=== PATIENT | male | born 1995 | race Caucasian/White ===

== ENCOUNTER 2024-02-24 10:09 | Emergency (ER) | payer OTHER ==
[~2024-02-24] VITALS: Ht 177.8 cm; Wt 98.0 kg
[2024-02-24] MEDS ORDERED: KETOROLAC TROMETHAMINE 30 MG/ML VIAL IV ONE (11:00)
[2024-02-24 11:16] LABS: BASOPHILS 0.5 % (0-2); EOSINOPHILS 2.4 % (0-6); HEMATOCRIT 41.8 % (35.0-50.0); HEMOGLOBIN 14.2 g/dL (12.0-18.0); LYMPHOCYTES 27.3 % (24-44); MCH 29.4 (27-36); MCV 86.3 fl (81-99); MONOCYTES 8.6 % (0-12); NEUTROPHILS 61.2 % (39-80); PLATELET COUNT 306 K/uL (140-440); RBC 4.85 M/ul (4.3-5.7); RDW 13.8 (10.5-15.0)
[2024-02-24 11:31] LABS: ALBUMIN/GLOBULIN RATIO 1.25 (1.1-2.4); ANION GAP 12.3 (7-21); BILIRUBIN, TOTAL 0.5 ng/dL (0.2-1.0); BUN/CREATININE RATIO 12.24 (6.0-28.6); CALCIUM 8.8 mg/dL (8.5-10.1); CREATININE, SERUM 0.98 mg/dL (0.70-1.30); POTASSIUM 4.3 mmol/L (3.5-5.1); PROTEIN, TOTAL 7.2 g/dL (6.4-8.2)
[2024-02-24 14:19] VITALS: BP 124/70
== END 2024-02-24 14:18 | disposition home or self-care (01) ==
LOC: ED 10:09
PROVIDERS: Emergency Medicine
DX: S29.9XXA Unspecified injury of thorax, initial encounter (principal); X50.0XXA Overexertion from strenuous movement or load, initial encounter
CPT/HCPCS: 36415; 71046; 71260; 80053; 85025; 99285-25; J1885; Q9967